=== PATIENT | female | born 1940 | race Caucasian/White ===

== ENCOUNTER 2020-09-29 14:58 | Emergency (ER) | payer MEDICARE, SELFPAY ==
[~2020-09-29] VITALS: Ht 162.6 cm; Wt 67.1 kg
[2020-09-29 15:01] VITALS: BP_SYST 110
--- NOTE | 2020-09-29 15:01 | NUR ---
Patient to ER bed 07 to gown for evaluation. Side rails up.
--- NOTE | 2020-09-29 15:02 | NUR ---
Pt brought by ambulance, A&Ox1 , pt presents to ER with L foot pain since yesterday, no open injuries noted, will cont to monitor.
--- NOTE | 2020-09-29 15:10 | NUR ---
Dr Zuniga evaluating patient at bedside
[2020-09-29 16:14] LABS: BASOPHILS % (AUTO) 0.4 % (0.0-2.0); EOSINOPHILS # (AUTO) 0.1 K/uL (0.0-0.4); EOSINOPHILS % (AUTO) 0.7 % (0.0-4.0); HEMATOCRIT 39.9 % (36-48); LYMPHOCYTES # (AUTO) 2.1 K/uL (1.0-5.5); MEAN CORPUSCULAR HEMOGLOBIN 28 pg (27-31); MEAN CORPUSCULAR HGB CONC 33 % (32-36); MEAN CORPUSCULAR VOLUME 86 fL (79.0-98.0); MONOCYTES # (AUTO) 0.7 K/uL (0.0-1.0); MONOCYTES % (AUTO) 7.8 % (1.7-9.3); NEUTROPHILS # (AUTO) 5.9 K/uL (1.8-7.7); NEUTROPHILS % (AUTO) 67.1 % (40.0-70.0); PLATELET COUNT (AUTO) 378 K/uL (130-430); RED BLOOD CELL COUNT(AUTO) 4.67 MIL/uL (4.2-6.2); RED CELL DISTRIBUTION WIDTH 15.8 % (9.0-15.0); WHITE BLOOD COUNT (AUTO) 8.9 K/uL (4.8-10.8)
[2020-09-29 16:28] LABS: ANION GAP 10 (5-15); CALCIUM 9.1 mg/dL (8.4-11.0); CHLORIDE 104 mmol/L (98-107); GLUCOSE 202 mg/dL (70-99); POTASSIUM 3.4 mmol/L (3.5-5.1); SODIUM SERUM 140 mmol/L (136-145); UREA NITROGEN, BLOOD 17 mg/dL (8-21)
--- NOTE | 2020-09-29 16:30 | NUR ---
Pt A&Ox1, respirations even and unlabored, cap refill <3.
[2020-09-29 16:34] LABS: ALANINE AMINOTRANSFERASE 18 U/L (12-78); ALBUMIN 2.2 g/dL (3.4-4.8); ASPARTATE AMINOTRANSFERASE 45 U/L (10-37); BILIRUBIN,DIRECT 0.2 mg/dL (0.0-0.3); INR 1.1 (0.8-1.2); LIPASE 62 U/L (73-393); TOTAL BILIRUBIN 0.3 mg/dL (0.0-1.0)
--- NOTE | 2020-09-29 17:14 | NUR ---
US at bedside
--- NOTE | 2020-09-29 17:42 | NUR ---
Pt resting in bed, no s/s of distress, VSS
[2020-09-29] MEDS ORDERED: IOHEXOL 350 mgI/mL, 150 ML INFUS..BTL IV ONE (17:45)
[2020-09-29] MEDS ORDERED: TOPXL100 PO (18:21)
[2020-09-29] MEDS ORDERED: DABI150C PO (18:21)
[2020-09-29] MEDS ORDERED: LIP10 PO (18:21)
--- NOTE | 2020-09-29 18:21 | NUR ---
Medication reconciliation completed with information provided by patient . Any prior medication reconciliation on file was reviewed and corrected.
--- NOTE | 2020-09-29 19:28 | NUR ---
Report given to Catrina OLSON
--- NOTE | 2020-09-29 19:40 | NUR ---
Patient changed to hospital gown and attempted to collect urine. Unable to give urine at this time.
--- NOTE | 2020-09-29 20:39 | NUR ---
Heparin drip started at 18units/kg as per ER MD Dr Zuniga.
[2020-09-29] MEDS: HEPARIN 25,000 UNITS/D5W 250ML 250 ML IV ONE (20:42)
[2020-09-29] MEDS: *HEPARIN PER PHARMACY XX ONE (20:54)
--- NOTE | 2020-09-29 21:15 | NUR ---
Patient placed on bedpan to collect urine sample, passed a bowel movement, was cleaned, linens changed, and patient repositioned in bed. Patient urine mixed with bowel movement. Unable to collect sample. MD cross
--- NOTE | 2020-09-29 21:20 | NUR ---
# 16 FR In and Out catheter with use of sterile technique. Immediate return of 400 ml dark yellow urine noted. Urine sample collected and sent to lab. Pt tolerated procedure well.
[2020-09-29 21:54] LABS: BILIRUBIN,URINE NEGATIVE (NEGATIVE); BLOOD, URINE 2+ (NEGATIVE); CLARITY/URINE SL CLOUDY (CLEAR); GLUCOSE,URINE NEGATIVE (NEGATIVE); KETONES,URINE NEGATIVE (NEGATIVE); LEUKOCYTE ESTERASE ,URINE 2+ (NEGATIVE); NITRITE, URINE POSITIVE (NEGATIVE); PROTEIN URINE 1+ (NEGATIVE); UROBILINOGEN,URINE 0.2 (0.2-1.0)
[2020-09-29 22:05] LABS: COLOR,URINE STRAW (YELLOW)
[2020-09-29 22:27] LABS: WBC,URINE 50-80 /HPF (0-3)
[2020-09-29 22:28] LABS: BACTERIA,URINE MANY /HPF (None Seen)
[2020-09-29 22:30] LABS: CALCIUM OXALATE CRYSTALS,UR None Seen /HPF (None Seen); CALCIUM PHOSPHATE CRYSTALS,UR None Seen /HPF (None Seen); COARSE GRANULAR CASTS,URINE None Seen /LPF (None Seen); FINE GRANULAR CASTS,URINE None Seen /LPF (None Seen); HYALINE CASTS, URINE None Seen /LPF (None Seen); OTHER CASTS, URINE None Seen /LPF (None Seen); OTHER CRYSTALS,URINE None Seen /HPF (None Seen); TRICHOMONAS,URINE None Seen /HPF (None Seen); TRIPLE PHOSPHATE CRYSTAL,UR None Seen /HPF (None Seen); URIC ACID CRYSTALS,URINE None Seen /HPF (None Seen); URINE AMORPHOUS PHOSPHATES None Seen /HPF (None Seen); URINE AMORPHOUS URATE None Seen /HPF (None Seen); WAXY CASTS,URINE None Seen /LPF (None Seen); YEAST,URINE None Seen /HPF (None Seen)
[2020-09-29 22:31] LABS: MUCUS,URINE None Seen /LPF (None Seen)
--- NOTE | 2020-09-29 23:35 | NUR ---
Patient to be transferred to [facility]. Is being transferred due to higher level of care. Receiving facility has accepting physician and available space. ER physician has signed transfer form. Patient or responsible green party has agreed to transfer and signed form. Patient belongings inventoried and will be sent with patient. Copy of nursing notes, lab reports, EKG, Physicians Orders and X-rays to be sent with patient. Report called to Manuela at receiving facility. Receiving physician is Dr. Holley, [facility] service has been called for transfer. ETA is 2345 hrs
[2020-09-30 00:12] VITALS: BP_SYST 110
--- NOTE | 2020-09-30 00:12 | NUR ---
[facility] ambulance here for transport, report given to WESLEY John
== END 2020-09-30 00:12 | disposition short-term general hospital (02) ==
LOC: SED 14:58
DX: I70.222 Atherosclerosis of native arteries of extremities with rest pain, left leg (principal); M79.605 Pain in left leg; I10 Essential (primary) hypertension; E11.9 Type 2 diabetes mellitus without complications; I48.91 Unspecified atrial fibrillation; Z20.822 Contact with and (suspected) exposure to COVID-19
CPT/HCPCS: 36415; 70450; 73630; 73706; 74177; 76376; 80048; 80076; 81000; 82550; 83690; 83880; 84484; 85025; 85610; 85730; 87086; 87426; 93005; 93923; 93971; 96365; 96366; 99291; J1644; Q9967 ×2

== ENCOUNTER 2020-10-10 15:24 | Emergency (ER) | payer MEDICARE, SELFPAY ==
[~2020-10-10] VITALS: Ht 160 cm; Wt 81.6 kg
[~2020-10-10 15:24] MED LIST: DABI150C PO; LIP10 PO; TOPXL100 PO
[2020-10-10 15:35] VITALS: BP_SYST 102
--- NOTE | 2020-10-10 15:35 | NUR ---
Pt triaged and placed in hallway.
--- NOTE | 2020-10-10 15:44 | NUR ---
Placed in room 2 . Placed on application support lead, blood pressure machine and pulse oximeter. To gown for exam. Side rails up. Report given to WESLEY Trinidad.
--- NOTE | 2020-10-10 16:00 | NUR ---
Pt bib ambulance with complaint of blood in the urine X3days. Pt AAOX3 at baseline. Pt denies any pain. Resting in gurney attached to monitor no distress noted at this time.
--- NOTE | 2020-10-10 16:04 | NUR ---
Pt assisted to bedpan for urine specimen. Urine collected and sent to lab.
--- NOTE | 2020-10-10 16:41 | NUR ---
Urine collected and sent to lab.
--- NOTE | 2020-10-10 17:03 | NUR ---
ER at bedside examining patient.
[2020-10-10] MEDS ORDERED: NACL 0.9% 1,000 ML IV ONE (17:15)
--- NOTE | 2020-10-10 17:55 | NUR ---
Lab at bedside.
[2020-10-10 17:56] LABS: BILIRUBIN,URINE NEGATIVE (NEGATIVE); BLOOD, URINE 3+ (NEGATIVE); CLARITY/URINE CLOUDY (CLEAR); COLOR,URINE RED (YELLOW); GLUCOSE,URINE NEGATIVE (NEGATIVE); KETONES,URINE NEGATIVE (NEGATIVE); LEUKOCYTE ESTERASE ,URINE 2+ (NEGATIVE); NITRITE, URINE POSITIVE (NEGATIVE); PH,URINE 6.5 (5.0-8.0); PROTEIN URINE 2+ (NEGATIVE); UROBILINOGEN,URINE 0.2 (0.2-1.0)
[2020-10-10 18:00] LABS: INR 1.5 (0.8-1.2); PROTHROMBIN TIME 15.5 SECS (9.5-12.5)
[2020-10-10 18:01] LABS: ANION GAP 4 (5-15); CALCIUM 8.8 mg/dL (8.4-11.0); CHLORIDE 103 mmol/L (98-107); CREATININE 0.96 mg/dL (0.55-1.30); GLUCOSE 107 mg/dL (70-99); POTASSIUM 3.7 mmol/L (3.5-5.1); SODIUM SERUM 137 mmol/L (136-145); UREA NITROGEN, BLOOD 13 mg/dL (8-21)
[2020-10-10 18:04] LABS: BASOPHILS % (AUTO) 0.5 % (0.0-2.0); EOSINOPHILS # (AUTO) 0.1 K/uL (0.0-0.4); EOSINOPHILS % (AUTO) 1.2 % (0.0-4.0); HEMATOCRIT 35.7 % (36-48); HEMOGLOBIN 11.6 g/dL (12.0-16.0); LYMPHOCYTES # (AUTO) 2.4 K/uL (1.0-5.5); LYMPHOCYTES % (AUTO) 34.2 % (20.5-51.5); MEAN CORPUSCULAR HEMOGLOBIN 28 pg (27-31); MEAN CORPUSCULAR HGB CONC 32 % (32-36); MEAN CORPUSCULAR VOLUME 88 fL (79.0-98.0); MONOCYTES # (AUTO) 0.6 K/uL (0.0-1.0); MONOCYTES % (AUTO) 9.2 % (1.7-9.3); NEUTROPHILS # (AUTO) 3.8 K/uL (1.8-7.7); NEUTROPHILS % (AUTO) 54.9 % (40.0-70.0); PLATELET COUNT (AUTO) 287 K/uL (130-430); RED BLOOD CELL COUNT(AUTO) 4.08 MIL/uL (4.2-6.2); RED CELL DISTRIBUTION WIDTH 16.9 % (9.0-15.0); WHITE BLOOD COUNT (AUTO) 6.9 K/uL (4.8-10.8)
[2020-10-10 18:07] LABS: BACTERIA,URINE MANY /HPF (None Seen); RBC,URINE >100 /HPF (0-3); WBC,URINE >100 /HPF (0-3)
[2020-10-10 18:07] LABS: ALANINE AMINOTRANSFERASE 21 U/L (12-78); ASPARTATE AMINOTRANSFERASE 39 U/L (10-37); TOTAL BILIRUBIN 0.2 mg/dL (0.0-1.0)
[2020-10-10] MEDS ORDERED: cefTRIAXone 1 GM IVPB PREMIX 50 ML IV ONE (18:15)
--- NOTE | 2020-10-10 18:38 | NUR ---
Pt asleep in [facility]. no distress noted at this time.
--- NOTE | 2020-10-10 19:13 | NUR ---
Care endorsed to Ahsan OLSON.
--- NOTE | 2020-10-10 19:14 | NUR ---
Received endorsement from day shift, AAOX3, breathing spontaeously at room air, not in distress noted. With ongoing IV fluid with 0.9% NOrmal Saline 1L at 100ml/hour infusing at left forearm g22 Iv cannula noted. Vital signs stable, denies chest pain.
[2020-10-10] MEDS ORDERED: CEPH250C PO (19:47)
--- NOTE | 2020-10-10 19:50 | NUR ---
[facility] contacted and spoke with [employer] Assistant Olesya, report given and made aware that the patient will be discharge and we still arranging for transport.
[2020-10-10 21:50] VITALS: BP_SYST 120
--- NOTE | 2020-10-10 21:50 | NUR ---
[facility] paramedics came, report given. Patient given written and verbal discharge instructions and verbalizes understanding. ER MD discussed with patient the results and treatment provided. Patient in stable condition. ID arm band removed. IV catheter removed intact and dressing applied, no active bleeding. Rx of Keflex given. Patient educated on pain management and to follow up with PMD. Pain Scale 0/10. Opportunity for questions provided and answered. Medication side effect fact sheet provided.
== END 2020-10-10 21:50 | disposition home health service (06) ==
LOC: SED 15:24
DX: N39.0 Urinary tract infection, site not specified (principal); I10 Essential (primary) hypertension; E11.9 Type 2 diabetes mellitus without complications; Z79.899 Other long term (current) drug therapy
CPT/HCPCS: 36415; 80053; 81000; 83605; 85025; 85610; 85730; 87040; 87086; 96361; 96365; 99284; J0696; J7030; 87186-TC